=== PATIENT | female | born 1990 | race American Indian/Alaskan Native ===

== ENCOUNTER 2018-06-04 14:29 | Inpatient (IN) | payer OTHER ==
[~2018-06-04 14:29] MED LIST: NACL 0.9% IR ONE; WATER FOR IRRIG STERILE IR ONE
[2018-06-04] MEDS ORDERED: CALCIUM GLUCONATE IV ONE (15:37)
[2018-06-04] MEDS ORDERED: NORMODYNE IV ONE (16:19)
[2018-06-04] MEDS ORDERED: MAGNESIUM SULFATE 4GM/100ML 4 GM/100 ML BAG IV ONE ×2 (16:19→16:22)
[2018-06-04] MEDS ORDERED: MAGNESIUM SULFATE 40GM/1000ML 40 GM/1,000 ML BAG IV ONE (16:22)
[2018-06-04 16:54] LABS: Bacteria,Urine 1+ /HPF (Negative); Bilirubin,Urine NEG (Negative); Blood,Urine SM (Negative); Color,Urine Yellow (Yellow); Urobilinogen,Urine < 2.0 mg/dL (<2.0)
[2018-06-04] MEDS: APRESOLINE IV PRN ×2 (16:56→18:40)
[2018-06-04 16:59] LABS: Amphetamine Screen,Urine PRESUMPTIVE NEGATIVE; Benzodiazepines Screen,Urine PRESUMPTIVE NEGATIVE; Cannabinoid Screen,Urine PRESUMPTIVE NEGATIVE; Cocaine Screen,Urine PRESUMPTIVE NEGATIVE; Methadone Screen,Urine PRESUMPTIVE NEGATIVE; Opiate Screen,Urine PRESUMPTIVE NEGATIVE
[2018-06-04] MEDS ORDERED: LACTATED RINGERS 1,000 ML IV SCH (17:00)
[2018-06-04] MEDS ORDERED: CALCIUM GLUCONATE 1,000 MG in NACL 0.9% 100 ML IV ONE (17:00)
[2018-06-04] MEDS: MAGNESIUM SULFATE 40GM/1000ML 40 GM/1,000 ML BAG IV SCH (17:10)
[2018-06-04 17:23] LABS: Hematocrit 30.2 % (30.3-42.9); Hemoglobin 10.2 gm/dl (10.1-14.3); Mean Corpuscular HGB Conc 34 % (30-34); Mean Corpuscular Volume 73 fl (79-97); Platelet Count 276 K/mm3 (140-440); Red Blood Count 4.15 M/mm3 (3.65-5.03); Red Cell Distribution Width 16.7 % (13.2-15.2)
[2018-06-04 17:34] LABS: Mean Corpuscular Hemoglobin 25 pg (28-32)
[2018-06-04 17:42] LABS: Alanine Aminotransferase 8 units/L (7-56); Uric Acid 4.9 mg/dL (3.5-7.6)
[2018-06-04 17:50] LABS: Rubella IgG Antibody Immune (Immune)
[2018-06-04 19:15] LABS: Hepatitis C Virus Antibody Non-Reactive (NonReactive)
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
[2018-06-04 22:38] LABS: Creatine Kinase MB 3.5 ng/mL (0.0-4.0)
[2018-06-04] MEDS ORDERED: PITOCin/NS 20 UNIT/1000ML DRIP 20,000 MILLIUNITS/1,000 ML BAG IV ONE (23:33)
[2018-06-04] MEDS ORDERED: REGLAN ONE (23:34)
[2018-06-04] MEDS ORDERED: PEPCID IV ONE (23:34)
[2018-06-04] MEDS ORDERED: BICITRA ONE (23:34)
[2018-06-04] MEDS ORDERED: ceFAZolin 2 GM in NACL 0.9% 20 ML IV ONE (23:45)
[2018-06-04] MEDS ORDERED: CELESTONE SOLUSPAN IM ONE (23:50)
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
[2018-06-05] MEDS ORDERED: APRESOLINE ONE
[2018-06-05 00:08] LABS: Hematocrit 31.5 % (30.3-42.9); Hemoglobin 10.5 gm/dl (10.1-14.3); Mean Corpuscular HGB Conc 33 % (30-34); Mean Corpuscular Volume 73 fl (79-97); Platelet Count 307 K/mm3 (140-440); Red Blood Count 4.31 M/mm3 (3.65-5.03); Red Cell Distribution Width 16.8 % (13.2-15.2)
[2018-06-05] MEDS ORDERED: REGLAN IV ONE (00:11)
[2018-06-05] MEDS ORDERED: PEPCID IV ONE (00:11)
[2018-06-05] MEDS ORDERED: BICITRA PO ONE (00:11)
[2018-06-05 00:12] LABS: Mean Corpuscular Hemoglobin 24 pg (28-32)
[2018-06-05] MEDS ORDERED: MORPHINE ONE (00:19)
[2018-06-05 00:26] LABS: Alanine Aminotransferase 9 units/L (7-56); Albumin 3.3 g/dL (3.9-5); BUN/Creatinine Ratio 5; Blood Urea Nitrogen 3 mg/dL (7-17); Calcium 7.4 mg/dL (8.4-10.2); Hemolysis Index 1
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
[2018-06-05] MEDS: PITOCin/NS 20 UNIT/1000ML DRIP 20 UNITS/1,000 ML BAG IV SCH ×2 (01:00→01:53)
[2018-06-05] MEDS ORDERED: TORADOL ONE (01:00)
[2018-06-05] MEDS ORDERED: LACTATED RINGERS 1,000 ML IV SCH (01:00)
[2018-06-05] MEDS: MAGNESIUM SULFATE 40GM/1000ML 40 GM/1,000 ML BAG IV SCH (01:58)
[2018-06-05] MEDS ORDERED: MAGNESIUM SULFATE 40GM/1000ML 40 GM/1,000 ML BAG IV ONE (02:01)
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
--- NOTE | 2018-06-05 02:36 | Procedure Note ---
OB Delivery Note - Delivery Date of Delivery: 06/05/18 Surgeon: TON MCKEON Estimated blood loss: other (800 mL) - Section Preop diagnosis: other malpresentation, other (Chronic HTN with Severe Preeclampsia, Di-Di Twin ) Postop diagnosis: same section procedure: section, primary low transverse Disposition: PACU Complications: none Narrative: Please see operative note. - A at 1 minute: 8 at 5 minutes: 8 Gender: Female (2459g (5 lb 7 oz) @ 0054 am) B at 1 minute: 7 at 5 minutes: 8 Infant Gender: Male (1971g ( 4lb 6 oz) @ 0056 am)
[2018-06-05] MEDS ORDERED: TUCKS PAD TP PRN (04:16)
[2018-06-05] MEDS ORDERED: PITOCin/NS 20 UNIT/1000ML DRIP 20 UNITS/1,000 ML BAG IV SCH (04:16)
[2018-06-05] MEDS ORDERED: MYLICON PO PRN (04:16)
[2018-06-05] MEDS ORDERED: SODIUM CHLORIDE FLUSH SYRINGE 10 ML IV NR (04:16)
[2018-06-05] MEDS ORDERED: MILK OF MAGNESIA PO PRN (04:16)
[2018-06-05] MEDS ORDERED: ZOFRAN IV PRN (04:16)
[2018-06-05] MEDS ORDERED: DILAUDID IV PRN (04:16)
[2018-06-05] MEDS ORDERED: LANSINOH TP PRN (04:16)
[2018-06-05] MEDS ORDERED: NARCAN 0.4 MG/1 ML IV PRN (04:16)
[2018-06-05 05:06] LABS: INR 0.95 (0.87-1.13)
[2018-06-05 05:07] LABS: Partial Thromboplastin Time 26.4 Sec. (24.2-36.6)
[2018-06-05] MEDS: DILAUDID IV PRN (05:14)
[2018-06-05] MEDS: APRESOLINE IV PRN ×3 (07:04→21:24)
[2018-06-05] MEDS ORDERED: PROVENTIL IH PRN (07:14)
[2018-06-05] MEDS: ANCEF/NS 1 GM/50 ML 1 GM/50 ML BAG IV SCH ×2 (09:16→16:57)
[2018-06-05] MEDS: NORMODYNE PO SCH ×2 (09:16→21:27)
[2018-06-05] MEDS: KEPPRA PO SCH ×2 (11:08→21:27)
[2018-06-05] MEDS ORDERED: ANCEF/STERILE WATER 2 GM/20 ML 2 GM/20 ML SYRINGE IV NR (12:15)
--- NOTE | 2018-06-05 12:20 | Event Note ---
Date: 06/05/18 patinet BP still in elevated range severe will add Procardia to labetaol. urine + large leuko, wbc rocephin added for UTI. patient discussed importance of mag level. continue present mgt.
[2018-06-05] MEDS: PERCOCET 5/325 PO PRN ×2 (12:31→17:56)
[2018-06-05] MEDS ORDERED: PROCARDIA XL PO SCH ×2 (13:00)
[2018-06-05] MEDS: D5LR 1,000 ML IV SCH (15:34)
[2018-06-05] MEDS: ROCEPHIN/NS 1 GM/50 ML 1 GM/50 ML BAG IV SCH (15:40)
[2018-06-05] MEDS ORDERED: BENADRYL IV PRN (21:06)
[2018-06-05 22:57] LABS: Hematocrit 29.2 % (30.3-42.9); Hemoglobin 9.6 gm/dl (10.1-14.3)
[2018-06-06] MEDS: PERCOCET 5/325 PO PRN ×5 (00:49→21:03)
[2018-06-06] MEDS: D5LR 1,000 ML IV SCH (05:12)
[2018-06-06] MEDS ORDERED: BOOSTRIX IM ONE (06:00)
[2018-06-06] MEDS ORDERED: M-M-R II VACCINE SUB-Q ONE (06:00)
--- NOTE | 2018-06-06 07:25 | Progress Note ---
Assessment and Plan A/P POD1 s/p csec Chronic HTN still elevated BP increase labatelol 300 mg bid and Procardia 90 mg bid Hx of seizures Keprra 500 mg po bid s/p mag routine PP care records reviewed bronwyn Dickson Subjective - Subjective Date of service: 06/06/18 Principal diagnosis: s/p csec for twins malpresentation with chronic htn superimposed pree Patient reports: appetite normal, voiding normally, pain well controlled, flatus , ambulating normally [place]: doing well Objective - Vital Signs Latest vital signs: Vital Signs Temp Pulse Resp BP BP BP Pulse Ox 06/06/18 05:11 18 06/06/18 05:00 97.9 F 82 18 124/81 100 06/06/18 00:55 97.6 F 89 18 150/103 100 06/06/18 00:49 18 06/05/18 22:15 94 H 154/110 06/05/18 21:27 88 161/113 06/05/18 21:24 88 161/113 06/05/18 20:00 93 H 18 155/116 100 06/05/18 18:20 87 154/105 06/05/18 17:40 90 163/106 06/05/18 17:08 95 H 159/108 06/05/18 17:03 94 H 156/112 06/05/18 16:58 95 H 162/113 06/05/18 16:53 87 170/118 06/05/18 16:11 97.9 F 84 16 160/113 100 06/05/18 14:08 98.0 F 94 H 16 158/109 100 06/05/18 13:48 160/105 06/05/18 12:27 97.9 F 92 H 20 160/112 100 06/05/18 12:26 97.9 F 94 H 20 160/112 99 06/05/18 10:36 84 143/101 06/05/18 10:00 97.5 F L 87 20 158/111 158/111 100 06/05/18 09:58 164/112 06/05/18 09:30 155/97 06/05/18 09:16 96 H 139/101 06/05/18 09:00 139/94 06/05/18 08:45 170/110 06/05/18 08:30 139/89 06/05/18 08:00 165/118 06/05/18 07:45 97.4 F L 86 20 153/104 100 06/05/18 07:30 151/110 06/05/18 07:20 162/110 Intake and Output 06/05/18 06/05/18 06/06/18 15:59 23:59 07:59 Intake Total 290 1120 Output Total 450 1900 Balance -160 -780 Intake: IV 50 1000 ANCEF/NS 1 GM/50 ML 1 gm 50 In 50 ml @ 100 mls/hr IV Q8H AMANDA Rx#:[id number] D5lr 1,000 ml @ 125 mls/ 1000 hr IV DIRECT AMANDA Rx#: [id number] Oral 240 120 Output: Urine 450 1900 Indwelling Catheter 450 1900 Other: Total, Intake Amount 120 120 Total, Output Amount 450 500 - Exam Breasts: Present: normal Cardiovascular: Present: Regular rate, Normal S1 Lungs: Present: Clear to auscultation, Normal air movement Abdomen: Present: normal appearance, soft, normal bowel sounds. Absent: distention, tenderness, guarding Vulva: both: normal Uterus: Present: normal, firm, fundal height below umbilicus. Absent: bogginess , tenderness Extremities: Present: normal Deep Tendon Reflex Grade: Normal +2 Incision: Present: normal, dry, intact - Labs Labs: Abnormal lab results 06/05/18 06/05/18 06/05/18 Range/Units 12:50 21:54 22:37 Hgb 9.6 L (10.1-14.3) gm/dl Hct 29.2 L (30.3-42.9) % Magnesium 6.20 H 6.30 H (1.7-2.3) mg/dL
[2018-06-06] MEDS: PROCARDIA XL PO SCH ×2 (09:43→22:01)
[2018-06-06] MEDS: KEPPRA PO SCH ×2 (09:43→22:01)
[2018-06-06] MEDS: NORMODYNE PO SCH ×3 (09:43→22:01)
[2018-06-06] MEDS: ROCEPHIN/NS 1 GM/50 ML 1 GM/50 ML BAG IV SCH (14:45)
[2018-06-06] MEDS: APRESOLINE IV PRN ×3 (16:55→22:05)
[2018-06-06] MEDS: DILAUDID IV PRN ×2 (19:32→22:09)
[2018-06-07] MEDS: NORMODYNE PO SCH ×3 (05:48→22:08)
[2018-06-07] MEDS: DILAUDID IV PRN (06:09)
--- NOTE | 2018-06-07 07:49 | Progress Note ---
Assessment and Plan A/P POD2 s/p csec Chronic HTN still elevated BP increase labatelol 300 mg bid and Procardia 90 mg bid Hx of seizures Keprra 500 mg po bid s/p mag consult for medicine to recommended therapy for elevated BP control consider d/c home tomorrow if BP resolution Subjective - Subjective Date of service: 06/07/18 Principal diagnosis: s/p csec for twins malpresentation with chronic htn superimposed pree Patient reports: appetite normal, voiding normally, pain well controlled, flatus , ambulating normally [place]: doing well Objective - Vital Signs Latest vital signs: Vital Signs Temp Pulse Resp BP BP Pulse Ox 06/07/18 05:51 98.3 F 06/07/18 05:48 90 150/90 06/07/18 00:19 85 20 132/89 99 06/06/18 22:36 111 H 18 150/92 99 06/06/18 22:05 102 H 156/109 06/06/18 22:01 102 H 156/109 06/06/18 21:00 91 H 18 165/119 100 06/06/18 20:30 98.3 F 85 18 167/113 99 06/06/18 19:32 18 06/06/18 17:20 152/93 06/06/18 17:15 101 H 175/98 06/06/18 17:10 108 H 175/99 06/06/18 17:05 119 H 157/107 06/06/18 17:00 89 189/110 06/06/18 16:55 94 H 164/112 06/06/18 16:20 98.4 F 97 H 20 166/114 06/06/18 14:40 67 151/101 06/06/18 14:00 67 151/101 06/06/18 09:43 73 155/102 06/06/18 08:30 98.7 F 73 20 155/102 Intake and Output 06/06/18 06/06/18 06/07/18 15:59 23:59 07:59 Intake Total 360 500 Output Total 950 1000 700 Balance -590 -500 -700 Intake: Oral 360 500 Output: Urine 950 1000 700 Indwelling Catheter 400 Void 550 1000 700 Other: Total, Intake Amount 360 500 Total, Output Amount 350 500 700 # Voids Void 2 3 2 - Exam Breasts: Present: normal Cardiovascular: Present: Regular rate, Normal S1 Lungs: Present: Clear to auscultation, Normal air movement Abdomen: Present: normal appearance, soft, normal bowel sounds. Absent: distention, tenderness, guarding Vulva: both: normal Uterus: Present: normal, firm, fundal height below umbilicus. Absent: bogginess , tenderness Extremities: Present: normal Deep Tendon Reflex Grade: Normal +2 Incision: Present: normal, dry, intact
[2018-06-07] MEDS: PERCOCET 5/325 PO PRN ×4 (09:29→21:42)
[2018-06-07] MEDS: KEPPRA PO SCH ×2 (10:36→21:42)
[2018-06-07] MEDS: PROCARDIA XL PO SCH ×2 (10:36→22:08)
[2018-06-07] MEDS: ROCEPHIN/NS 1 GM/50 ML 1 GM/50 ML BAG IV SCH (12:56)
--- NOTE | 2018-06-07 17:03 | Consultation ---
History of Present Illness - Reason for Consult Consult date: 06/07/18 Requesting physician: TON MCKEON - History of Present Illness pateint is post s/p with delivery of twin daughters.Post op doing well.Patient has chronic HTN.On Nifedipine 90mg q12h.No chest pain.No fever or chills.No Dysuria. Past History Past Medical History: hypertension, seizures Past Surgical History: Social history: lives with family, full code, other (Recently moved to [place] 3 wks ago, originally from [place] ) Medications and Allergies Allergies Allergy/AdvReac Type Severity Reaction Status Date / Time latex Allergy Hives Verified 06/04/18 16:04 Home Medications Medication Instructions Recorded Confirmed Last Taken Type Ibuprofen [Motrin] 600 mg PO Q8H PRN #30 tablet 06/06/18 Unknown Rx Labetalol [Normodyne TAB] 300 mg PO Q8HR #60 tablet 06/06/18 Unknown Rx NIFEdipine XL [Procardia Xl] 90 mg PO BID #30 tablet 06/06/18 Unknown Rx Nitrofurantoin Monohyd/M-Cryst 100 mg PO BID #14 capsule 06/06/18 Unknown Rx [Macrobid 100 mg Capsule] levETIRAcetam [Keppra] 500 mg PO BID #30 tablet 06/06/18 Unknown Rx oxyCODONE /ACETAMINOPHEN [Percocet 1 tab PO Q6HR PRN #30 tablet 06/06/18 Unknown Rx 5/325] Active Meds: Active Medications Albuterol (Proventil) 2.5 mg IH Q4HRT PRN PRN Reason: Shortness Of Breath Diphenhydramine HCl (Benadryl) 25 mg IV Q6H PRN PRN Reason: Itching Last Admin: 06/05/18 21:26 Dose: 25 mg Hydralazine HCl (Apresoline) 5 mg IV Q30MIN PRN PRN Reason: Hypertension Last Admin: 06/06/18 22:05 Dose: 5 mg Hydromorphone HCl (Dilaudid) 0.5 mg IV Q3H PRN PRN Reason: Pain , Severe (7-10) Last Admin: 06/07/18 06:09 Dose: 0.5 mg Hydromorphone HCl (Dilaudid) 0.25 mg IV Q3H PRN PRN Reason: Pain, Moderate (4-6) Magnesium Sulfate (Magnesium Sulfate 40gm/1000ml) 40 gm in 1,000 mls @ 50 mls/ hr IV DIRECT AMANDA Last Admin: 06/05/18 01:58 Dose: 2 gm/hr, 50 mls/hr Dextrose/Lactated Ringer's (D5lr) 1,000 mls @ 125 mls/hr IV DIRECT AMANDA Last Admin: 06/06/18 05:12 Dose: 125 mls/hr Oxytocin/Sodium Chloride (Pitocin/Ns 20 Unit/1000ml Drip) 20 units in 1,000 mls @ 250 mls/hr IV DIRECT AMANDA Ceftriaxone Sodium (Rocephin/Ns 1 Gm/50 Ml) 1 gm in 50 mls @ 100 mls/hr IV Q24HR [facility]; Protocol Last Infusion: 06/07/18 13:56 Dose: Infused Labetalol HCl (Normodyne) 300 mg PO Q8HR [facility] Last Admin: 06/07/18 13:48 Dose: 300 mg Levetiracetam (Keppra) 500 mg PO BID [facility] Last Admin: 06/07/18 10:36 Dose: 500 mg Magnesium Hydroxide (Milk Of Magnesia) 30 ml PO QHS PRN PRN Reason: Constip Unrelieved By Senna Multi-Ingredient Ointment (Lansinoh) 1 applic TP PRN PRN PRN Reason: dryness/cracking Last Admin: 06/05/18 15:40 Dose: 1 applic Naloxone HCl (Narcan 0.4 Mg/1 Ml) 0.1 mg IV Q2MIN PRN PRN Reason: Res Rate </= 8 or 02 SAT < 92% Nifedipine (Procardia Xl) 90 mg PO Q12HR [facility] Last Admin: 06/07/18 10:36 Dose: 90 mg Ondansetron HCl (Zofran) 4 mg IV Q8H PRN PRN Reason: Nausea And Vomiting Last Admin: 06/05/18 06:58 Dose: 4 mg Oxycodone/Acetaminophen (Percocet 5/325) 2 tab PO Q4H PRN PRN Reason: Pain, Moderate (4-6) Last Admin: 06/07/18 13:42 Dose: 2 tab Simethicone (Mylicon) 80 mg PO Q6H PRN PRN Reason: Gas pain Witch Janis/Glycerin (Tucks Pad) 1 each TP PRN PRN PRN Reason: Hemorrhoids/cleansing/soothing Review of Systems All systems: negative Exam - Constitutional Vitals: Temp Pulse Resp BP Pulse Ox 98.6 F 87 18 148/82 100 06/07/18 07:48 06/07/18 13:48 06/07/18 13:45 06/07/18 13:48 06/07/18 13:45 General appearance: Present: no acute distress, well-nourished - EENT Eyes: Present: PERRL ENT: hearing intact, clear oral mucosa - Neck Neck: Present: supple, normal ROM - Respiratory Respiratory effort: normal Respiratory: bilateral: CTA - Cardiovascular Heart rate: 78 Rhythm: regular Heart Sounds: Present: S1 & S2. Absent: rub, click - Extremities Extremities: no ischemia, pulses intact, pulses symmetrical, No edema Peripheral Pulses: within normal limits - Abdominal General gastrointestinal: Present: soft, non-tender, non-distended, normal bowel sounds Female genitourinary: Present: normal - Integumentary Integumentary: Present: clear, warm, dry - Musculoskeletal Musculoskeletal: gait normal, strength equal bilaterally - Psychiatric Psychiatric: appropriate mood/affect, intact judgment & insight - Neurologic Neurologic: CNII-XII intact, moves all extremities - Allied Health Allied health notes reviewed: nursing Results - Labs CBC & Chem 7: 06/05/18 22:37 06/04/18 23:25 Assessment and Plan - Patient Problems (1) Uncontrolled hypertension Current Visit: Yes Status: Chronic Plan to address problem: Cont Nifedipine Xl 90 q12h BP 148/82 (2) Seizure disorder Current Visit: Yes Status: Chronic Plan to address problem: Cont Keppra (3) UTI (urinary tract infection) Current Visit: Yes Status: Acute Qualifiers: Urinary tract infection type: acute cystitis Plan to address problem: On Rocephin (4) DVT prophylaxis Current Visit: Yes Status: Acute Plan to address problem: On SCD's
[2018-06-08] MEDS: NORMODYNE PO SCH ×3 (06:04→21:41)
[2018-06-08] MEDS: PERCOCET 5/325 PO PRN ×3 (08:00→19:52)
--- NOTE | 2018-06-08 08:43 | Progress Note ---
Assessment and Plan - Patient Problems (1) Pre-eclampsia superimposed on chronic hypertension, delivered Current Visit: Yes Status: Acute Plan to address problem: will give IV hydralazine now will await further recommendations from hospitalist for control of blood pressures Subjective - Subjective Date of service: 06/08/18 Principal diagnosis: s/p csec for twins malpresentation with chronic htn superimposed pree Interval history: Patient continues to have labile elevated blood pressures. This am was 181/111. Will give IV hydralazine. Patient appears she has gotten little rest. She denies any nausea or vomiting. Patient reports: appetite normal : doing well Objective - Vital Signs Latest vital signs: Vital Signs Temp Pulse Resp BP BP BP Pulse Ox 06/08/18 08:00 20 06/08/18 06:04 82 147/91 06/08/18 04:00 98.6 F 82 18 147/91 06/08/18 00:00 98.7 F 78 18 155/99 06/07/18 22:08 89 169/112 06/07/18 17:43 71 18 155/88 06/07/18 16:45 87 100 06/07/18 16:44 98.1 F 91 H 18 100 06/07/18 13:48 87 148/82 06/07/18 13:45 87 18 148/82 100 06/07/18 10:35 93 H 18 155/87 100 Intake and Output 06/07/18 06/08/18 06/08/18 22:59 06:59 14:59 Intake Total 360 300 Output Total 5 Balance 355 300 Intake: Oral 360 Intake, Free Water 300 Output: Chest Tube Drainage 3 Left 3 Urine 2 Void 2 Other: Total, Intake Amount 360 Total, Output Amount 5 # Voids Void 2 - Exam Uterus: Present: normal
[2018-06-08] MEDS ORDERED: APRESOLINE IV NR ×2 (09:00)
[2018-06-08] MEDS: KEPPRA PO SCH ×2 (10:36→21:41)
[2018-06-08] MEDS: PROCARDIA XL PO SCH ×2 (10:37→21:41)
[2018-06-08] MEDS: ROCEPHIN/NS 1 GM/50 ML 1 GM/50 ML BAG IV SCH (13:00)
--- NOTE | 2018-06-08 18:21 | Progress Note ---
Assessment and Plan Assessment and plan: pateint is post s/p with delivery of twin daughters.Post op doing well.Patient has chronic HTN.On Nifedipine 90mg q12h.No chest pain.No fever or chills.No Dysuria. - Patient Problems (1) Uncontrolled hypertension Current Visit: Yes Status: Chronic Plan to address problem: Cont Nifedipine Xl 90 q12h Continue Labetalol, tachycardia may be resolving Check chest xray to rule out other pathology if [place] resolves patient can be discharged with outpatient BP check in 3- 5 days (2) Seizure disorder Current Visit: Yes Status: Chronic Plan to address problem: Cont Keppra (3) UTI (urinary tract infection) Current Visit: Yes Status: Acute Qualifiers: Urinary tract infection type: acute cystitis Plan to address problem: On Rocephin (4) DVT prophylaxis Current Visit: Yes Status: Acute Plan to address problem: On SCD's History Interval history: Patient seen and examined, reports improvement in headache but still lingering a little bit. Hospitalist Physical - Physical exam Narrative exam: VITAL SIGNS: Reviewed. GENERAL: The patient appeared well nourished and normally developed. Vital signs as documented. HEAD: No signs of head trauma. EYES: Pupils are equal. Extraocular motions intact. EARS: Hearing grossly intact. MOUTH: Oropharynx is normal. NECK: No adenopathy, no JVD. CHEST: Chest with clear breath sounds bilaterally. No wheezes, rales, or rhonchi. CARDIAC: Regular rate and rhythm. S1 and S2, without murmurs, gallops, or rubs. VASCULAR: No Edema. Peripheral pulses normal and equal in all extremities. ABDOMEN: Soft, gravid as abdomen without detectable tenderness. No rebound or guarding, and no masses palpated. Bowel Sounds normal. MUSCULOSKELETAL: Good range of motion of all major joints. Extremities without clubbing, cyanosis or edema. NEUROLOGIC EXAM: Alert and oriented x 3. No focal sensory or strength deficits. Speech normal. Follows commands. PSYCHIATRIC: Mood normal. SKIN: No rash or lesions. - Constitutional Vitals: Temp Pulse Resp BP Pulse Ox 98.2 F 83 18 149/95 100 06/08/18 17:36 06/08/18 17:36 06/08/18 17:36 06/08/18 17:36 09/24/18 10:50 General appearance: Present: no acute distress, well-nourished Results - Labs CBC & Chem 7: 06/05/18 22:37 06/04/18 23:25 Labs: Laboratory Last Values WBC 7.0 K/mm3 (4.5-11.0) 06/04/18 23:25 RBC 4.31 M/mm3 (3.65-5.03) 06/04/18 23:25 Hgb 9.6 gm/dl (10.1-14.3) L 06/05/18 22:37 Hct 29.2 % (30.3-42.9) L 06/05/18 22:37 MCV 73 fl (79-97) L 06/04/18 23:25 MCH 24 pg (28-32) L 06/04/18 23:25 MCHC 33 % (30-34) 06/04/18 23:25 RDW 16.8 % (13.2-15.2) H 06/04/18 23:25 Plt Count 307 K/mm3 (140-440) 06/04/18 23:25 Sickle Cell Screen Negative (Negative) 06/04/18 16:03 PT 13.2 Sec. (12.2-14.9) 06/05/18 04:22 INR 0.95 (0.87-1.13) 06/05/18 04:22 APTT 26.4 Sec. (24.2-36.6) 06/05/18 04:22 Sodium 138 mmol/L (137-145) 06/04/18 23:25 Potassium 3.9 mmol/L (3.6-5.0) 06/04/18 23:25 Chloride 102.1 mmol/L (98-107) 06/04/18 23:25 Carbon Dioxide 20 mmol/L (22-30) L 06/04/18 23:25 Anion Gap 20 mmol/L 06/04/18 23:25 BUN 3 mg/dL (7-17) L 06/04/18 23:25 Creatinine 0.6 mg/dL (0.7-1.2) L 06/04/18 23:25 Estimated GFR > 60 ml/min 06/04/18 23:25 BUN/Creatinine Ratio 5 % 06/04/18 23:25 Glucose 85 mg/dL (65-100) 06/04/18 23:25 Uric Acid 4.9 mg/dL (3.5-7.6) 06/04/18 16:12 Calcium 7.4 mg/dL (8.4-10.2) L 06/04/18 23:25 Magnesium 6.30 mg/dL (1.7-2.3) H 06/05/18 21:54 Total Bilirubin 0.20 mg/dL (0.1-1.2) 06/04/18 23:25 AST 22 units/L (5-40) 06/04/18 23:25 ALT 9 units/L (7-56) 06/04/18 23:25 Alkaline Phosphatase 110 units/L (35-129) 06/04/18 23:25 Lactate Dehydrogenase 237 units/L (91-180) H 06/04/18 16:12 Total Creatine Kinase 154 units/L (30-135) H 06/04/18 16:32 CK-MB (CK-2) 3.5 ng/mL (0.0-4.0) 06/04/18 16:32 CK-MB (CK-2) Rel Index 2.2 (0-4) 06/04/18 16:32 Troponin T < 0.010 ng/mL (0.00-0.029) 06/04/18 16:32 Total Protein 6.6 g/dL (6.3-8.2) 06/04/18 23:25 Albumin 3.3 g/dL (3.9-5) L 06/04/18 23:25 Albumin/Globulin Ratio 1.0 % 06/04/18 23:25 Urine Color Yellow (Yellow) 06/04/18 16:19 Urine Turbidity Turbid (Clear) 06/04/18 16:19 Urine pH 6.0 (5.0-7.0) 06/04/18 16:19 Ur Specific [place] 1.005 (1.003-1.030) 06/04/18 16:19 Urine Protein 100 mg/dl mg/dL (Negative) 06/04/18 16:19 Urine Glucose (UA) Neg mg/dL (Negative) 06/04/18 16:19 Urine Ketones Neg mg/dL (Negative) 06/04/18 16:19 Urine Blood Sm (Negative) 06/04/18 16:19 Urine Nitrite Neg (Negative) 06/04/18 16:19 Urine Bilirubin Neg (Negative) 06/04/18 16:19 Urine Urobilinogen < 2.0 mg/dL (<2.0) 06/04/18 16:19 Ur Leukocyte Esterase Lg (Negative) 06/04/18 16:19 Urine WBC (Auto) 36.0 /HPF (0.0-6.0) H 06/04/18 16:19 Urine RBC (Auto) 43.0 /HPF (0.0-6.0) 06/04/18 16:19 U Epithel Cells (Auto) 85.0 /HPF (0-13.0) H 06/04/18 16:19 Urine Bacteria (Auto) 1+ /HPF (Negative) 06/04/18 16:19 Urine Opiates Screen Presumptive negative 06/04/18 16:19 Urine Methadone Screen Presumptive negative 06/04/18 16:19 Ur Barbiturates Screen Presumptive negative 06/04/18 16:19 Ur Phencyclidine Scrn Presumptive negative 06/04/18 16:19 Ur Amphetamines Screen Presumptive negative 06/04/18 16:19 U Benzodiazepines Scrn Presumptive negative 06/04/18 16:19 Urine Cocaine Screen Presumptive negative 06/04/18 16:19 U Marijuana (THC) Screen Presumptive negative 06/04/18 16:19 Drugs of Abuse Note Disclamer 06/04/18 16:19 RPR Nonreactive (Nonreactive) 06/04/18 16:03 Hep Bs Antigen Non-reactive (Negative) 06/04/18 16:12 Hepatitis C Antibody Non-reactive (NonReactive) 06/04/18 16:03 HIV 1&2 Antibody Rapid Non react (Non React) 06/04/18 16:03 HIV P24 Antigen Non react (Non React) 06/04/18 16:03 Rubella IgG Antibody Immune (Immune) 06/04/18 16:03 Blood Type O POSITIVE 06/04/18 16:03 Antibody Screen Negative 06/04/18 16:03
--- NOTE | 2018-06-08 21:26 | XRay Report ---
FINAL REPORT PROCEDURE: XR CHEST 1V AP TECHNIQUE: Chest radiograph anteroposterior view. CPT 80455 HISTORY: PENUMONIA COMPARISON: No prior studies are available for comparison. FINDINGS: Heart: Normal. Mediastinum/Vessels: Normal. Lungs/Pleural space: Normal. Bony thorax: No acute osseous abnormality. Life support devices: None. IMPRESSION: No acute cardiopulmonary abnormality.
[2018-06-09] MEDS: PERCOCET 5/325 PO PRN ×3 (00:03→09:07)
[2018-06-09] MEDS: NORMODYNE PO SCH ×2 (05:01→13:00)
[2018-06-09] MEDS: APRESOLINE IV PRN (08:11)
--- NOTE | 2018-06-09 08:57 | Progress Note ---
Assessment and Plan - Patient Problems (1) Pre-eclampsia superimposed on chronic hypertension, delivered Current Visit: Yes Status: Acute Plan to address problem: labile blood pressures controlled with intermittent doses of hydralazine will add fiorcet for headache will re-evaluate this afternoon to determine if patient is demonstrating clinical improvement discharge later is a consideration with close followup outpatient Subjective - Subjective Date of service: 06/09/18 Principal diagnosis: s/p csec for twins malpresentation with chronic htn superimposed pree Interval history: POD #5 s/p for twin gestation. Patient experiencing labile blood pressures. Still continues to have a headache with slight improvement today. Denies any seizure activity. Has had slight improvement in tachycardia. Patient reports: appetite normal, voiding normally : doing well, nursing well Objective - Vital Signs Latest vital signs: Vital Signs Temp Pulse Resp BP BP Pulse Ox 06/09/18 08:46 86 149/102 99 06/09/18 08:29 91 H 149/96 06/09/18 08:26 91 H 148/93 100 06/09/18 08:21 87 167/111 06/09/18 08:16 101 H 157/121 06/09/18 07:47 98.5 F 87 18 159/116 100 06/09/18 05:55 18 06/09/18 05:01 87 141/98 06/09/18 04:55 18 06/09/18 04:00 98.6 F 96 H 18 163/115 06/09/18 01:03 18 06/09/18 00:03 18 06/09/18 00:00 98.6 F 92 H 16 139/88 06/08/18 21:41 100 H 171/101 06/08/18 20:52 18 06/08/18 20:00 98.6 F 93 H 16 171/100 06/08/18 19:52 18 06/08/18 17:36 98.2 F 83 18 149/95 06/08/18 14:00 111 H 136/91 06/08/18 12:50 98.7 F 111 H 18 136/91 06/08/18 12:21 16 06/08/18 10:50 113 H 155/79 100 06/08/18 10:20 121 H 144/83 100 06/08/18 09:50 115 H 16 120/73 09/24/18 09:35 117 H 148/88 99 06/08/18 09:20 125 H 141/90 97 06/08/18 09:05 118 H 131/93 99 06/08/18 09:00 105 H 143/92 100 06/08/18 08:55 108 H 100 H 140/102 Intake and Output 06/08/18 06/09/18 06/09/18 22:59 06:59 14:59 Intake Total 120 120 Balance 120 120 Intake: Oral 120 Intake, Free Water 120 Other: Total, Intake Amount 120 # Voids Void 1 - Exam Uterus: Present: normal, firm
[2018-06-09] MEDS ORDERED: FIORICET PO PRN (10:30)
[2018-06-09] MEDS: PROCARDIA XL PO SCH (10:57)
[2018-06-09] MEDS: KEPPRA PO SCH (10:57)
--- NOTE | 2018-06-09 15:26 | Progress Note ---
Assessment and Plan Assessment and plan: 28-year-old -[place] female with past medical history significant for hypertension was admitted to labor and delivery, she delivered twins with C- section in her blood pressure was high. Uncontrolled hypertension - Patient is on Procardia and labetalol despite that her blood pressure was high today it was 1 58/111, I added hydralazine 100 mg by mouth 3 times a day - We'll monitor blood pressure Seizure disorder -Continue Keppra UTI - Treated with Rocephin DVT prophylaxis - Management per primary History Interval history: Patient was seen and evaluated to the bedside, patient didn't have any complaints. Blood pressure is still high. Hospitalist Physical - Physical exam Narrative exam: Not in cardiopulmonary distress. The patient appeared well nourished and normally developed. Vital signs as documented. Head exam is unremarkable. No scleral icterus . Neck is without jugular venous distension, thyromegaly, or carotid bruits. Lungs are clear to auscultation. Cardiac exam reveals regular rate and Rhythm. First and second heart sounds normal. No murmurs, rubs or gallops. Abdominal exam reveals normal bowel sounds, no masses, no organomegaly and no aortic enlargement. Extremities are nonedematous and both femoral and pedal pulses are normal. [employer]: Alert and oriented 3. No focal weakness. - Constitutional Vitals: Temp Pulse Resp BP Pulse Ox 98.3 F 110 H 18 158/111 99 06/09/18 11:38 06/09/18 13:00 06/09/18 11:38 06/09/18 13:00 06/09/18 11:38 General appearance: Present: no acute distress, well-nourished Results - Labs CBC & Chem 7: 06/05/18 22:37 06/04/18 23:25 Labs: Laboratory Last Values WBC 7.0 K/mm3 (4.5-11.0) 06/04/18 23:25 RBC 4.31 M/mm3 (3.65-5.03) 06/04/18 23:25 Hgb 9.6 gm/dl (10.1-14.3) L 06/05/18 22:37 Hct 29.2 % (30.3-42.9) L 06/05/18 22:37 MCV 73 fl (79-97) L 09/20/18 23:25 MCH 24 pg (28-32) L 06/04/18 23:25 MCHC 33 % (30-34) 06/04/18 23:25 RDW 16.8 % (13.2-15.2) H 06/04/18 23:25 Plt Count 307 K/mm3 (140-440) 06/04/18 23:25 Sickle Cell Screen Negative (Negative) 06/04/18 16:03 PT 13.2 Sec. (12.2-14.9) 06/05/18 04:22 INR 0.95 (0.87-1.13) 06/05/18 04:22 APTT 26.4 Sec. (24.2-36.6) 06/05/18 04:22 Sodium 138 mmol/L (137-145) 06/04/18 23:25 Potassium 3.9 mmol/L (3.6-5.0) 06/04/18 23:25 Chloride 102.1 mmol/L (98-107) 06/04/18 23:25 Carbon Dioxide 20 mmol/L (22-30) L 06/04/18 23:25 Anion Gap 20 mmol/L 06/04/18 23:25 BUN 3 mg/dL (7-17) L 06/04/18 23:25 Creatinine 0.6 mg/dL (0.7-1.2) L 06/04/18 23:25 Estimated GFR > 60 ml/min 06/04/18 23:25 BUN/Creatinine Ratio 5 % 06/04/18 23:25 Glucose 85 mg/dL (65-100) 06/04/18 23:25 Uric Acid 4.9 mg/dL (3.5-7.6) 06/04/18 16:12 Calcium 7.4 mg/dL (8.4-10.2) L 06/04/18 23:25 Magnesium 6.30 mg/dL (1.7-2.3) H 06/05/18 21:54 Total Bilirubin 0.20 mg/dL (0.1-1.2) 06/04/18 23:25 AST 22 units/L (5-40) 06/04/18 23:25 ALT 9 units/L (7-56) 06/04/18 23:25 Alkaline Phosphatase 110 units/L (35-129) 06/04/18 23:25 Lactate Dehydrogenase 237 units/L (91-180) H 06/04/18 16:12 Total Creatine Kinase 154 units/L (30-135) H 06/04/18 16:32 CK-MB (CK-2) 3.5 ng/mL (0.0-4.0) 06/04/18 16:32 CK-MB (CK-2) Rel Index 2.2 (0-4) 06/04/18 16:32 Troponin T < 0.010 ng/mL (0.00-0.029) 06/04/18 16:32 Total Protein 6.6 g/dL (6.3-8.2) 06/04/18 23:25 Albumin 3.3 g/dL (3.9-5) L 06/04/18 23:25 Albumin/Globulin Ratio 1.0 % 06/04/18 23:25 Urine Color Yellow (Yellow) 06/04/18 16:19 Urine Turbidity Turbid (Clear) 06/04/18 16:19 Urine pH 6.0 (5.0-7.0) 06/04/18 16:19 Ur Specific [facility] 1.005 (1.003-1.030) 06/04/18 16:19 Urine Protein 100 mg/dl mg/dL (Negative) 06/04/18 16:19 Urine Glucose (UA) Neg mg/dL (Negative) 06/04/18 16:19 Urine Ketones Neg mg/dL (Negative) 06/04/18 16:19 Urine Blood Sm (Negative) 06/04/18 16:19 Urine Nitrite Neg (Negative) 06/04/18 16:19 Urine Bilirubin Neg (Negative) 06/04/18 16:19 Urine Urobilinogen < 2.0 mg/dL (<2.0) 06/04/18 16:19 Ur Leukocyte Esterase Lg (Negative) 06/04/18 16:19 Urine WBC (Auto) 36.0 /HPF (0.0-6.0) H 06/04/18 16:19 Urine RBC (Auto) 43.0 /HPF (0.0-6.0) 06/04/18 16:19 U Epithel Cells (Auto) 85.0 /HPF (0-13.0) H 06/04/18 16:19 Urine Bacteria (Auto) 1+ /HPF (Negative) 06/04/18 16:19 Urine Opiates Screen Presumptive negative 06/04/18 16:19 Urine Methadone Screen Presumptive negative 06/04/18 16:19 Ur Barbiturates Screen Presumptive negative 06/04/18 16:19 Ur Phencyclidine Scrn Presumptive negative 06/04/18 16:19 Ur Amphetamines Screen Presumptive negative 06/04/18 16:19 U Benzodiazepines Scrn Presumptive negative 06/04/18 16:19 Urine Cocaine Screen Presumptive negative 06/04/18 16:19 U Marijuana (THC) Screen Presumptive negative 06/04/18 16:19 Drugs of Abuse Note Disclamer 06/04/18 16:19 RPR Nonreactive (Nonreactive) 06/04/18 16:03 Hep Bs Antigen Non-reactive (Negative) 06/04/18 16:12 Hepatitis C Antibody Non-reactive (NonReactive) 06/04/18 16:03 HIV 1&2 Antibody Rapid Non react (Non React) 06/04/18 16:03 HIV P24 Antigen Non react (Non React) 06/04/18 16:03 Rubella IgG Antibody Immune (Immune) 06/04/18 16:03 Blood Type O POSITIVE 06/04/18 16:03 Antibody Screen Negative 06/04/18 16:03
[2018-06-09 16:18] VITALS: BP 151/106
[2018-06-09] MEDS ORDERED: APRESOLINE PO SCH (20:00)
== END 2018-06-09 17:40 | disposition home or self-care (01) | DRG 765 ==
LOC: TRG 14:29 → ED 14:29 → TRG 14:30 → LD 15:21 → TRG 15:21 → LD 15:21 → EDSTATUS 20:38 → ED 23:35 → APU 06-05 01:24 → OB 06-05 04:02
PROVIDERS: ADMIT Obstetrics & Gynecology; ATTEND Internal Medicine
PROC: 10D00Z1 Extraction of Products of Conception, Low, Open Approach (ICD-10-PCS; principal; 2018-06-05)
PROC: 3E0234Z Introduction of Serum, Toxoid and Vaccine into Muscle, Percutaneous Approach (ICD-10-PCS; 2018-06-06)
DX: O30.043 Twin pregnancy, dichorionic/diamniotic, third trimester (principal); O75.3 Other infection during labor; O10.92 Unspecified pre-existing hypertension complicating childbirth; O99.354 Diseases of the nervous system complicating childbirth; Z3A.36 36 weeks gestation of pregnancy; Z37.2 Twins, both liveborn; O64.1XX2 Obstructed labor due to breech presentation, fetus 2; V49.9XXA Car occupant (driver) (passenger) injured in unspecified traffic accident, initial encounter; Y92.410 Unspecified street and highway as the place of occurrence of the external cause; Y93.89 Activity, other specified; Y99.8 Other external cause status; O99.52 Diseases of the respiratory system complicating childbirth; J45.909 Unspecified asthma, uncomplicated; O75.89 Other specified complications of labor and delivery; R07.89 Other chest pain; S20.219A Contusion of unspecified front wall of thorax, initial encounter; G40.909 Epilepsy, unspecified, not intractable, without status epilepticus; O11.4 Pre-existing hypertension with pre-eclampsia, complicating childbirth; O99.02 Anemia complicating childbirth; D64.9 Anemia, unspecified; O9A.213 Injury, poisoning and certain other consequences of external causes complicating pregnancy, third trimester; Z23 Encounter for immunization
CPT/HCPCS: 36415; 71045; 76700; 76816; 80053; 80307; 81001; 82550; 82553; 82565; 83615; 83735; 84450; 84460; 84484; 84550; 85014; 85018; 85027; 85610; 85660; 85730; 86592; 86706; 86762; 86803; 86850; 86900; 86901; 87806; 88307; 93005; 93010; A6250; J0360; J0610; J0690; J0696; J0702; J1170; J1200; J1885; J2270; J2405; J2590; J2765; J3475; J7120; J7121